=== PATIENT | male | born 1965 | race Caucasian/White ===

== ENCOUNTER 2022-05-19 16:07 | Emergency (ER) | payer OTHER ==
[~2022-05-19] VITALS: Ht 162.6 cm; Wt 70.3 kg
[2022-05-19 16:17] VITALS: BP 140/91
[2022-05-19] MEDS ORDERED: ONDANSETRON 4 MG ODT PO ONE (16:40)
[2022-05-19] MEDS ORDERED: ONDA-188 SL (17:19)
[2022-05-19 17:40] VITALS: BP 140/91
--- NOTE | 2022-05-19 17:40 | NUR ---
Patient discharged with v/s stable. Written and verbal after care instructions FOR NAUSEA given and explained. Patient alert, oriented and verbalized understanding of instructions. Ambulatory with steady gait. All questions addressed prior to discharge. ID band removed. Patient advised to follow up with PMD. Rx of ZOFRAN given. Opportunity to ask questions provided and answered.
== END 2022-05-19 17:40 | disposition home or self-care (01) ==
LOC: MED 16:07
DX: R11.0 Nausea (principal); E78.5 Hyperlipidemia, unspecified
CPT/HCPCS: 74018; 99283; Q0162

== ENCOUNTER 2023-02-22 17:25 | Emergency (ER) | payer OTHER ==
[~2023-02-22] VITALS: Ht 170.2 cm; Wt 79.4 kg
[~2023-02-22 17:25] MED LIST: ONDA-188 SL
[2023-02-22 17:36] VITALS: BP 158/90; PULSE 76; RESP 17; TEMP 97.4; O2SAT 98
[2023-02-22] MEDS ORDERED: NAPR-54 PO (18:17)
[2023-02-22] MEDS ORDERED: CYCL-711 PO (18:17)
[2023-02-22 19:34] VITALS: BP 158/90; PULSE 76; RESP 17; TEMP 97.4; O2SAT 98
--- NOTE | 2023-02-22 19:34 | NUR ---
Patient discharged with v/s stable. Written and verbal after care instructions given and explained. Patient alert, oriented and verbalized understanding of instructions. Ambulatory with steady gait. All questions addressed prior to discharge. ID band removed. Patient advised to follow up with PMD. Rx of flexeril and naprosyn given. Patient educated on indication of medication including possible reaction and side effects. Opportunity to ask questions provided and answered.
== END 2023-02-22 19:34 | disposition home or self-care (01) ==
LOC: MED 17:25
DX: S16.1XXA Strain of muscle, fascia and tendon at neck level, initial encounter (principal); H61.21 Impacted cerumen, right ear; I10 Essential (primary) hypertension; Z79.899 Other long term (current) drug therapy; Z79.1 Long term (current) use of non-steroidal anti-inflammatories (NSAID); V89.2XXA Person injured in unspecified motor-vehicle accident, traffic, initial encounter; Y93.89 Activity, other specified; Y92.410 Unspecified street and highway as the place of occurrence of the external cause; Y99.8 Other external cause status
CPT/HCPCS: 99283

== ENCOUNTER 2023-05-08 09:12 | Emergency (ER) | payer OTHER ==
[~2023-05-08] VITALS: Ht 167.6 cm; Wt 77.6 kg
[~2023-05-08 09:12] MED LIST changes: +CYCL-711 PO; +NAPR-54 PO
[2023-05-08 09:27] VITALS: BP 129/80; PULSE 89; RESP 18; TEMP 98.3; O2SAT 95
[2023-05-08] MEDS ORDERED: KETOROLAC 30 MG/ML VIAL IVP ONE (09:55)
[2023-05-08] MEDS ORDERED: NACL 0.9% 1,000 ML IV SCH (09:55)
[2023-05-08 10:18] LABS: APPEARANCE,URINE CLEAR (CLEAR); BILIRUBIN,URINE NEGATIVE (NEGATIVE); BLOOD, URINE TRACE-I (NEGATIVE); COLOR,URINE YELLOW (YELLOW); LEUKOCYTE ESTERASE ,URINE NEGATIVE (NEGATIVE); NITRITE, URINE NEGATIVE (NEGATIVE); PH,URINE 5.5 (5.0-9.0); PROTEIN,URINE NEGATIVE (NEGATIVE); UGLUCOSE NEGATIVE (NEGATIVE); UROBILINOGEN,URINE 0.2 EU/dL (0.2 - 1)
[2023-05-08 10:22] VITALS: O2SAT 95
[2023-05-08 10:28] LABS: BACTERIA,URINE OCCASSIONAL /HPF (None Seen); RBC,URINE 0-5 /HPF (0-5); SQUAMOUS EPITHELIAL CELL,UR 0-3 (FEW) /LPF (0-3 (FEW)); WBC,URINE 0-5 /HPF (0-5)
[2023-05-08 10:31] LABS: BASOPHILS % (AUTO) 0.2 % (0.0-2.0); EOSINOPHILS # (AUTO) 0.3 K/uL (0-0.4); EOSINOPHILS % (AUTO) 3.7 % (0.0-4.0); HEMATOCRIT 46.4 % (36-52); HEMOGLOBIN 15.9 g/dL (12.0-18.0); LYMPHOCYTES # (AUTO) 0.7 K/uL (2.0-11.5); LYMPHOCYTES % (AUTO) 8.4 % (20.5-51.1); MEAN CORPUSCULAR HEMOGLOBIN 30 pg (27-31); MEAN CORPUSCULAR HGB CONC 34 g/dL (33-37); MEAN CORPUSCULAR VOLUME 87.7 fL (80-94); MONOCYTES # (AUTO) 0.7 K/uL (0.8-1.0); MONOCYTES % (AUTO) 8.3 % (1.7-9.3); NEUTROPHILS # (AUTO) 6.3 K/uL (1.8-7.7); NEUTROPHILS % (AUTO) 79.4 % (42.2-75.2); PLATELET COUNT (AUTO) 197 K/uL (140-450); RED CELL DISTRIBUTION WIDTH 13.4 % (11.6-13.7)
[2023-05-08 10:43] LABS: ALBUMIN 3.7 g/dL (3.4-5.0); ANION GAP 8.5 (8-16); CARBON DIOXIDE 28.9 mmol/L (21-32); POTASSIUM 3.4 mmol/L (3.5-5.1); TOTAL BILIRUBIN 0.9 mg/dL (0.0-1.0); TOTAL PROTEIN, SERUM 7.3 g/dL (6.4-8.2)
[2023-05-08 10:46] LABS: LACTIC ACID 0.6 mmol/L (0.4-2.0)
[2023-05-08] MEDS ORDERED: NAPR-1704 PO (13:16)
== END 2023-05-08 13:23 | disposition home or self-care (01) ==
LOC: MED 09:12
DX: K63.89 Other specified diseases of intestine (principal); I10 Essential (primary) hypertension; Z79.899 Other long term (current) drug therapy
CPT/HCPCS: 36415; 74176; 76705; 80053; 81001; 83605; 85025; 87040; 96361; 96374; 99285; J1885; J7030; Q0092

== ENCOUNTER 2024-04-28 16:12 | Emergency (ER) | payer OTHER ==
[~2024-04-28] VITALS: Ht 167.6 cm; Wt 78.2 kg
[~2024-04-28 16:12] MED LIST changes: +NAPR-1704 PO; +NAPR-337 PO; -NAPR-54 PO
[2024-04-28 16:46] VITALS: BP 140/88; PULSE 83; RESP 16; TEMP 98.1; O2SAT 99
== END 2024-04-28 17:33 | disposition home or self-care (01) ==
LOC: MED 16:12
DX: K52.9 Noninfective gastroenteritis and colitis, unspecified (principal); I10 Essential (primary) hypertension; Z79.899 Other long term (current) drug therapy
CPT/HCPCS: 99281